=== PATIENT | male | born 1965 | race Hispanic/Latino ===

== ENCOUNTER 2024-03-15 08:26 | Day surgery (SDC) | payer OTHER ==
[2024-03-14 16:28] LABS: BASOPHILS # (AUTO) 0.05 K/uL (0.00-0.20); BASOPHILS % (AUTO) 0.7 % (0.0-5.0); EOSINOPHILS # (AUTO) 0.16 K/uL (0.00-0.70); EOSINOPHILS % (AUTO) 2.3 % (0.0-8.0); HEMATOCRIT 47.9 % (42-54); IMMATURE GRANULOCYTE ABSOLUTE 0.11 K/uL (0-1); LYMPHOCYTES # (AUTO) 2.2 K/uL (1.0-4.8); LYMPHOCYTES % (AUTO) 31.9 % (21.0-51.0); MEAN CORPUSCULAR HEMOGLOBIN 31.5 pg (27.0-33.0); MEAN CORPUSCULAR HGB CONC 33.6 g/dL (32.0-36.0); MEAN CORPUSCULAR VOLUME 93.7 fL (79-99); MONOCYTES # (AUTO) 0.6 K/uL (0.1-1.0); MONOCYTES % (AUTO) 8.2 % (3.0-13.0); NEUTROPHILS # (AUTO) 3.8 K/uL (1.8-7.7); NEUTROPHILS % (AUTO) 55.3 % (40.0-77.0); PLATELET COUNT (AUTO) 217 K/uL (130-400); RED BLOOD CELL COUNT(AUTO) 5.11 MIL/uL (4.50-6.20); RED CELL DISTRIBUTION WIDTH 12.9 % (11.0-15.5); WHITE BLOOD COUNT (AUTO) 6.8 K/uL (4.8-10.8)
[2024-03-14 16:32] VITALS: BP 131/75; PULSE 67; RESP 19
[2024-03-14 16:44] LABS: CREATININE 1.1 mg/dL (0.5-1.3)
[~2024-03-15] VITALS: Ht 177.8 cm; Wt 127.5 kg
[2024-03-15] VITALS (16 sets, daily range): BP systolic 108–122; BP diastolic 65–73; PULSE 57–63; RESP 13–19
[~2024-03-15 08:26] MED LIST: ACET-2123 PO; APIX5TAB PO; ATOR10TA69 PO; BRIM5DRO21 OP; CHOL100040 PO; DILT240C81 PO; EMPA25TA PO; LATA2.5D14 OP; METF-446 PO; METO100T14 PO; MVIT PO; PANT40TA55 PO; TRAM50TA4 PO
[2024-03-15] MEDS ORDERED: 0.9%NACL 1000ML 1,000 ML IV ONE (08:59)
[2024-03-15] MEDS ORDERED: DORZ10DR19 OP (10:13)
[2024-03-15] MEDS: LIDOCAINE 1%-EPI 1:100,000 20 ML VIAL IJ ONE (10:22)
[2024-03-15] MEDS ORDERED: LIDOCAINE 1%-EPI 1:100,000 20 ML VIAL ONE (10:26)
[2024-03-15] MEDS ORDERED: FAMOTIDINE 20MG VIAL IV ONE (10:30)
[2024-03-15] MEDS ORDERED: ACETAMINOPHEN 1,000 MG/100 ML VIAL IV ONE (10:30)
[2024-03-15] MEDS ORDERED: FENTANYL CITRATE PF 50 MCG/1 ML 2ML VIAL ONE (10:37)
[2024-03-15] MEDS ORDERED: ROCURONIUM BROMIDE 10MG/1ML 5ML VL ONE (10:37)
[2024-03-15] MEDS ORDERED: LIDOCAINE PF 100MG/5ML (2%) SYRINGE 5ML ONE (10:37)
[2024-03-15] MEDS ORDERED: PROPOFOL 10 MG/ML 20ML VIAL IV ONE (10:37)
[2024-03-15] MEDS ORDERED: SUCCINYLCHOLINE CHLORIDE 20 MG/ML 10 ML VIAL ONE (10:39)
[2024-03-15] MEDS ORDERED: SUGAMMADEX SODIUM 200 MG/2 ML VIAL IV ONE (10:44)
[2024-03-15 11:16] LABS: INR <= 0.93 (0.85-1.15); PROTHROMBIN TIME 10.7 SEC (9.6-11.6)
[2024-03-15] MEDS ORDERED: DEXAMETHASONE SOD PHOSPHATE 10MG/ML 1ML VIAL ONE (11:20)
[2024-03-15] MEDS ORDERED: ONDANSETRON 4MG INJ ONE (11:20)
== END 2024-03-15 13:45 | disposition home or self-care (01) ==
LOC: DAH 08:26
PROVIDERS: ATTEND Otolaryngology Plastic Surgery within the Head & Neck
DX: J38.7 Other diseases of larynx (principal); I10 Essential (primary) hypertension; E11.9 Type 2 diabetes mellitus without complications; G47.33 Obstructive sleep apnea (adult) (pediatric); Z88.6 Allergy status to analgesic agent; Z88.8 Allergy status to other drugs, medicaments and biological substances; Z79.84 Long term (current) use of oral hypoglycemic drugs; Z79.899 Other long term (current) drug therapy; Z83.3 Family history of diabetes mellitus; Z80.3 Family history of malignant neoplasm of breast; Z82.49 Family history of ischemic heart disease and other diseases of the circulatory system; Z98.890 Other specified postprocedural states
CPT/HCPCS: 80048; 85025; 36415 ×2; 93005; 31541; 85610; 82948 ×2; 88305; A6260; A4663; J3490 ×4; J3010; J1100; J0330; J7030; J2001; J2704; J2405; A4605; A4215; A4223; A4222; A4221